=== PATIENT | male | born 1965 | race Caucasian/White ===

== ENCOUNTER → 2017-10-27 | Day surgery (SDC) | payer OTHER ==
[~2017-10-27] MED LIST: HYDROmorphone 2 MG/ML VIAL IV; IV RINGERS,LACTATED 1000ML 1,000 ML IV; LIDOCAINE 1% PF 2 ML VIAL. ID; LIDOCAINE 2% PF Vial for OR 5 ML VIAL.; MIDAZOLAM HCL/PF 2 MG/2 ML VIAL. IV; MORPHINE SULFATE 2 MG/ML DISP.SYRIN. IV; ONDANSETRON PF 4 MG/2 ML VIAL. IV; PROCHLORPERAZINE 10 MG/2 ML VIAL. IV; PROPOFOL 40 ML IV; fentaNYL PF VIAL 100 MCG/2 ML VIAL IV
[2017-10-27] MEDS: IV RINGERS,LACTATED 1000ML 1,000 ML IV (07:32)
== END | disposition home or self-care (01) ==
LOC: SURG 06:53
DX: K64.0 First degree hemorrhoids (principal); E78.5 Hyperlipidemia, unspecified; I11.9 Hypertensive heart disease without heart failure; K21.9 Gastro-esophageal reflux disease without esophagitis; Z80.0 Family history of malignant neoplasm of digestive organs; Z80.3 Family history of malignant neoplasm of breast; Z80.2 Family history of malignant neoplasm of other respiratory and intrathoracic organs; Z82.49 Family history of ischemic heart disease and other diseases of the circulatory system; Z72.89 Other problems related to lifestyle; Z79.82 Long term (current) use of aspirin; Z79.899 Other long term (current) drug therapy; Z98.52 Vasectomy status
CPT/HCPCS: 45378; J2704

== ENCOUNTER → 2021-09-26 | Outpatient (CLI) | payer OTHER ==
[2017-10-27 08:35] VITALS: BP 108/66
[~2021-09-26] MED LIST changes: +ASPI-630 PO; +ATOR20TA58 PO; +DILT240C2 PO; -HYDROmorphone 2 MG/ML VIAL IV; +ISOS30TA68 PO; -IV RINGERS,LACTATED 1000ML 1,000 ML IV; -LIDOCAINE 1% PF 2 ML VIAL. ID; -LIDOCAINE 2% PF Vial for OR 5 ML VIAL.; +LORA-434 PO; -MIDAZOLAM HCL/PF 2 MG/2 ML VIAL. IV; -MORPHINE SULFATE 2 MG/ML DISP.SYRIN. IV; -ONDANSETRON PF 4 MG/2 ML VIAL. IV; +PANT40TA77 PO; -PROCHLORPERAZINE 10 MG/2 ML VIAL. IV; -PROPOFOL 40 ML IV; +TAMS0.4C97 PO; -fentaNYL PF VIAL 100 MCG/2 ML VIAL IV
--- NOTE | 2021-09-26 18:18 | KCIC ---
MRI of the lumbar spine without contrast 09/26/2021 CLINICAL HISTORY: Worsening low back pain. TECHNIQUE: Unenhanced T1-weighted and T2-weighted sagittal and axial and inversion recovery sagittal images of the lumbar spine were obtained. FINDINGS: Mild S-shaped curvature of the thoracolumbar spine is seen. Degenerative signal changes are seen involving all the disks of the lumbar spine. These are seen changes are seen within the marrow surrounding these discs. Loss of height of the L1-2, L2-3, L4-5 and L5-S1 discs is noted. The conus m edullaris is normal morphology, position, and signal characteristics. At the L1-2 disc space there is a mild generalized disc bulge. Superimposed on this disc bulge is a f ocal central disc herniation which extrudes slightly superiorly and inferiorly. It measures 5 mm in A P diameter. Degenerative changes are seen involving the facet joints bilaterally. There is mild ligam entum flavum hypertrophy bilaterally. There is prominence of the posterior epidural fat. These findin gs when combined result in mild central spinal canal stenosis. No neural foraminal stenosis is seen. At the L2-3 disc space there is a minimal generalized disc bulge. Degenerative changes are seen invol ving the facet joints bilaterally. There is mild ligamentum flavum hypertrophy bilaterally. These fin dings do not result in significant central spinal canal or neural foraminal stenosis. At the L3-4 disc space is a mild generalized disc bulge. Degenerative changes are seen involving the facet joints bilaterally. There is mild ligamentum flavum hypertrophy bilaterally. There are small fa cet joint effusions bilaterally. These findings when combined do not result in significant central sp inal canal or neural foraminal stenosis. At the L4-5 disc space there is a moderate generalized disc bulge. Degenerative changes are seen invo lving the facet joints bilaterally. There is mild ligamentum flavum hypertrophy bilaterally. These fi ndings when combined do not result in significant central spinal canal stenosis. Mild to moderate lef t greater than right neural foraminal stenosis is seen. At the L5-S1 disc space there is a mild to moderate generalized disc bulge. Degenerative changes are seen involving the facet joints bilaterally. There are small facet joint effusions bilaterally. These findings do not result in significant central spinal canal stenosis. No neural foraminal stenosis is seen. IMPRESSION: The changes of degenerative disc disease are seen throughout the lumbar spine. These find ings results in mild central spinal canal stenosis at L1-2. Mild to moderate left greater than right neural foraminal stenosis is seen at L4-5. Electronically signed by: Dick Weaver MD (09/26/2021 6:16 PM) [id number]
== END ==
LOC: KCIC MRI 13:41
PROVIDERS: ATTEND Family Medicine
DX: M47.817 Spondylosis without myelopathy or radiculopathy, lumbosacral region (principal); M51.27 Other intervertebral disc displacement, lumbosacral region; M48.061 Spinal stenosis, lumbar region without neurogenic claudication; M43.8X5 Other specified deforming dorsopathies, thoracolumbar region
CPT/HCPCS: 72148